=== PATIENT | male | born 1975 | race Caucasian/White ===

== ENCOUNTER 2018-09-14 14:29 | Emergency (ER) | payer SELFPAY ==
[2018-09-14] MEDS ORDERED: NS(*) 0.9% 1000 ML BAG 1,000 ML IV ONE (14:32)
--- NOTE | 2018-09-14 14:39 | ER Report ---
History and Physical Time Seen By MD: 14:37 Hx. of Stated Complaint: patient found unresponsive on the street. swelling to right eye and nose. C-Collar placed via EMS (CHRIST CABRERA MD) HPI/ROS CHIEF COMPLAINT: AMS HISTORY OF PRESENT ILLNESS: Patient is a 43-year-old male who is prior visits for alcohol abuse as well as a history of bilateral ankle fractures. EMS was called along with post responders for an unresponsive male laying underneath a parked car. Patient admits to drinking alcohol today but cannot quantify the amount. Patient is being held under police hold. Patient offers no complaints of pain states that he is on no current medications. REVIEW OF SYSTEMS: Constitutional: No fever, no chills. Eyes: No discharge. ENT: No sore throat. Cardiovascular: No chest pain, no palpitations. Respiratory: No cough, no shortness of breath. Gastrointestinal: No abdominal pain, no vomiting. Genitourinary: No hematuria. Musculoskeletal: No back pain. Skin: No rashes. Neurological: No headache. (CHRIST CABRERA MD) Allergies: Coded Allergies: No Known Drug Allergies (Unverified , 05/04/15) Home Meds Reported Medications Aspirin (ASPIRIN EC) 325 Mg Tablet.dr, 325 MG PO QDAY, TAB take with food 05/08/15 Oxycodone Hcl/Acetaminophen (PERCOCET 5-325 MG TABLET) 1 Each Tablet, 1-2 TAB PO Q6H PRN for PAIN, #20 TAB 05/08/15 Cephalexin (KEFLEX) 500 Mg Capsule, 500 MG PO TID, #15 CAP 05/08/15 Past Medical/Surgical History History of alcohol abuse in the past history of bilateral ankle fractures (CHRIST CABRERA MD) Hx Smoking: Yes (1 PPD FOR 25 YEARS) Smoking Status: Current: Every Day Smoker Exposure to Second Hand Smoke?: Yes Hx Substance Use Disorder: Yes (MARIJUANA) Hx Alcohol Use: Yes (CHRIST CABRERA MD) Constitutional Vital Sign - Last 24 Hours 09/14/18 14:31 O2 Delivery Room Air (LAURORA,NAVI V DO) Physical Exam General Appearance: The patient is alert, has no immediate need for airway protection and no signs of toxicity. She was small alcohol on breath and slurred speech. Eyes: Pupils equal and round no pallor or injection. ENT, Mouth: Mucous membranes are moist. Alcohol on breath Respiratory: There are no retractions, lungs are clear to auscultation. Cardiovascular: Regular rate and rhythm. Gastrointestinal: Abdomen is soft and non tender, no masses, bowel sounds normal. Neurological: Patient is awake with slurred speech GCS is 14 Skin: Warm and dry, no rashes. Musculoskeletal: Neck is supple non tender. Extremities are nontender, nonswollen and have full range of motion. (CHRIST CABRERA MD) Medical Decision Making Data Points Result Diagram: 09/14/18 1448 09/14/18 1448 Laboratory Hematology Test 09/14/18 14:48 09/14/18 14:51 09/14/18 15:25 Red Blood Count 4.61 M/uL (4.00-5.60) Mean Corpuscular Volume 106.0 fL (80.0-96.0) Mean Corpuscular Hemoglobin 36.8 pg (26.0-33.0) Mean Corpuscular Hemoglobin Concent 34.7 g/dL (32.0-36.0) Red Cell Distribution Width 13.1 % (11.5-14.5) Mean Platelet Volume 8.0 fL (7.2-11.1) Neutrophils (%) (Auto) 51.6 % (39.4-72.5) Lymphocytes (%) (Auto) 37.1 % (17.6-49.6) Monocytes (%) (Auto) 9.0 % (4.1-12.4) Eosinophils (%) (Auto) 1.0 % (0.4-6.7) Basophils (%) (Auto) 1.3 % (0.3-1.4) Nucleated RBC Relative Count (auto) 0.0 /100WBC Neutrophils # (Auto) 3.7 K/uL (2.0-7.4) Lymphocytes # (Auto) 2.6 K/uL (1.3-3.6) Monocytes # (Auto) 0.6 K/uL (0.3-1.0) Eosinophils # (Auto) 0.1 K/uL (0.0-0.5) Basophils # (Auto) 0.1 K/uL (0.0-0.1) Nucleated RBC Absolute Count (auto) 0.00 K/uL Sodium Level 144 mmol/L (137-145) Potassium Level 3.4 mmol/L (3.5-5.0) Chloride Level 107 mmol/L (98-107) Carbon Dioxide Level 21 mmol/L (22-30) Blood Urea Nitrogen 5 mg/dl (9-21) Creatinine 0.70 mg/dl (0.66-1.25) Glomerular Filtration Rate Calc > 60.0 Random Glucose 83 mg/dl (75-110) Calcium Level 8.9 mg/dl (8.4-10.2) Total Bilirubin 0.3 mg/dl (0.2-1.3) Aspartate Amino Transf (AST/SGOT) 87 U/L (0-35) Alanine Aminotransferase (ALT/SGPT) 56 U/L (0-56) Alkaline Phosphatase 97 U/L (0-126) Ammonia 10 UMOL/L (9-33) Total Protein 7.7 g/dl (6.3-8.2) Albumin 4.4 g/dl (3.5-5.0) Serum Alcohol 436 mg/dl Whole Blood Glucose 76 mg/DL (75-110) Urine Color Colorless Urine Clarity Clear Urine pH 6.0 pH (4.8-9.5) Urine Specific [place] 1.001 Urine Protein Negative mg/dL (NEGATIVE) Urine Glucose (UA) Negative mg/dL (NEGATIVE) Urine Ketones Negative mg/dL (NEGATIVE) Urine Blood Small (NEGATIVE) Urine Nitrite Negative (NEGATIVE) Urine Bilirubin Negative (NEGATIVE) Urine Urobilinogen Negative mg/dL (0.2-1.9) Urine Leukocyte Esterase Negative (NEGATIVE) Urine RBC <1 /HPF (0-2/HPF) Urine WBC None /HPF (0-5/HPF) Urine Squamous Epithelial Cells None /LPF (</=FEW) Urine Bacteria Negative /HPF (NONE-FEW) Urine Mucus None /HPF (NONE-FEW) Urine Opiates Screen Negative Urine Barbiturates Screen Negative Ur Tricyclic Antidepressants Screen Negative Urine Phencyclidine Screen Negative Urine Amphetamines Screen Negative Urine Benzodiazepines Screen Negative Urine Cocaine Screen Negative Urine Cannabinoids Screen Negative Chemistry Test 09/14/18 14:48 09/14/18 14:51 09/14/18 15:25 White Blood Count 7.1 k/uL (4.5-11.0) Red Blood Count 4.61 M/uL (4.00-5.60) Hemoglobin 17.0 g/dL (14.0-18.0) Hematocrit 48.9 % (42.0-52.0) Mean Corpuscular Volume 106.0 fL (80.0-96.0) Mean Corpuscular Hemoglobin 36.8 pg (26.0-33.0) Mean Corpuscular Hemoglobin Concent 34.7 g/dL (32.0-36.0) Red Cell Distribution Width 13.1 % (11.5-14.5) Platelet Count 209 K/uL (150-450) Mean Platelet Volume 8.0 fL (7.2-11.1) Neutrophils (%) (Auto) 51.6 % (39.4-72.5) Lymphocytes (%) (Auto) 37.1 % (17.6-49.6) Monocytes (%) (Auto) 9.0 % (4.1-12.4) Eosinophils (%) (Auto) 1.0 % (0.4-6.7) Basophils (%) (Auto) 1.3 % (0.3-1.4) Nucleated RBC Relative Count (auto) 0.0 /100WBC Neutrophils # (Auto) 3.7 K/uL (2.0-7.4) Lymphocytes # (Auto) 2.6 K/uL (1.3-3.6) Monocytes # (Auto) 0.6 K/uL (0.3-1.0) Eosinophils # (Auto) 0.1 K/uL (0.0-0.5) Basophils # (Auto) 0.1 K/uL (0.0-0.1) Nucleated RBC Absolute Count (auto) 0.00 K/uL Glomerular Filtration Rate Calc > 60.0 Calcium Level 8.9 mg/dl (8.4-10.2) Total Bilirubin 0.3 mg/dl (0.2-1.3) Aspartate Amino Transf (AST/SGOT) 87 U/L (0-35) Alanine Aminotransferase (ALT/SGPT) 56 U/L (0-56) Alkaline Phosphatase 97 U/L (0-126) Ammonia 10 UMOL/L (9-33) Total Protein 7.7 g/dl (6.3-8.2) Albumin 4.4 g/dl (3.5-5.0) Serum Alcohol 436 mg/dl Whole Blood Glucose 76 mg/DL (75-110) Urine Color Colorless Urine Clarity Clear Urine pH 6.0 pH (4.8-9.5) Urine Specific [place] 1.001 Urine Protein Negative mg/dL (NEGATIVE) Urine Glucose (UA) Negative mg/dL (NEGATIVE) Urine Ketones Negative mg/dL (NEGATIVE) Urine Blood Small (NEGATIVE) Urine Nitrite Negative (NEGATIVE) Urine Bilirubin Negative (NEGATIVE) Urine Urobilinogen Negative mg/dL (0.2-1.9) Urine Leukocyte Esterase Negative (NEGATIVE) Urine RBC <1 /HPF (0-2/HPF) Urine WBC None /HPF (0-5/HPF) Urine Squamous Epithelial Cells None /LPF (</=FEW) Urine Bacteria Negative /HPF (NONE-FEW) Urine Mucus None /HPF (NONE-FEW) Urine Opiates Screen Negative Urine Barbiturates Screen Negative Ur Tricyclic Antidepressants Screen Negative Urine Phencyclidine Screen Negative Urine Amphetamines Screen Negative Urine Benzodiazepines Screen Negative Urine Cocaine Screen Negative Urine Cannabinoids Screen Negative Toxicology Test 09/14/18 14:48 09/14/18 15:25 Serum Alcohol 436 mg/dl Urine Opiates Screen Negative Urine Barbiturates Screen Negative Ur Tricyclic Antidepressants Screen Negative Urine Phencyclidine Screen Negative Urine Amphetamines Screen Negative Urine Benzodiazepines Screen Negative Urine Cocaine Screen Negative Urine Cannabinoids Screen Negative Urinalysis Test 09/14/18 15:25 Urine Color Colorless Urine Clarity Clear Urine pH 6.0 pH (4.8-9.5) Urine Specific [place] 1.001 Urine Protein Negative mg/dL (NEGATIVE) Urine Glucose (UA) Negative mg/dL (NEGATIVE) Urine Ketones Negative mg/dL (NEGATIVE) Urine Blood Small (NEGATIVE) Urine Nitrite Negative (NEGATIVE) Urine Bilirubin Negative (NEGATIVE) Urine Urobilinogen Negative mg/dL (0.2-1.9) Urine Leukocyte Esterase Negative (NEGATIVE) Urine RBC <1 /HPF (0-2/HPF) Urine WBC None /HPF (0-5/HPF) Urine Squamous Epithelial Cells None /LPF (</=FEW) Urine Bacteria Negative /HPF (NONE-FEW) Urine Mucus None /HPF (NONE-FEW) (NAVI HERNANDEZ DO) ED Course/Re-evaluation ED Course N at this time will be CT of the head patient bones and C-spine. We'll check EKG CBC CMP alcohol urine drug screen. Decision to Disposition Date: Sep 14, 2018 Decision to Disposition Time: 17:00 (CHRIST CABRERA MD) ED Course 09/14/2018 3:54:33 pm PT signed out to me pending Imaging. Pts images show a broken nose but otherwise no acute injury. Pt does have signs of dry blood in nose so I suspect the broken nose is a new finding. Pt is alert. Will d/c to police custody. Decision to Disposition Date: Sep 14, 2018 Decision to Disposition Time: 15:55 (NAVI HERNANDEZ DO) Depart Departure Latest Vital Signs Vital Signs Date Time Temp Pulse Resp B/P (MAP) Pulse Ox O2 Delivery O2 Flow Rate FiO2 09/14/18 14:31 Room Air (NAVI HERNANDEZ DO) Impression: Primary Impression: Broken nose Additional Impression: Alcohol intoxication Condition: Condition Unchanged Disposition: [facility] TO CUSTODIAL/CORRECTIONAL F Referrals: BETTY MARTEL MD (PCP) ALE RAO JR, MD ENT specialist to see for your broken nose if you feel it is needed. Patient Instructions: Alcohol Intoxication (ED), Nasal Fracture (DC) Additional Instructions: You broke your nose. If you feel you are having trouble breathing thru your nose or if you feel it is not straight, you can follow up with ENT (nose specialist). Return as needed. Problem Qualifiers Primary Impression: Broken nose Encounter type: initial encounter Fracture type: closed Qualified Codes: S02.2XXA - Fracture of nasal bones, initial encounter for closed fracture Additional Impression: Alcohol intoxication Complication of substance-induced condition: uncomplicated Qualified Codes: F10.920 - Alcohol use, unspecified with intoxication, uncomplicated CHRIST CABRERA MD Sep 14, 2018 14:39 NAVI HERNANDEZ DO Sep 14, 2018 15:57
--- NOTE | 2018-09-14 14:43 | EKG ---
FACILITY: [facility] PATIENT NAME: PAKO CASTRO : [id number] MR: [id number] V: [id number] EXAM DATE: ORDERING PHYSICIAN: CHRIST CABRERA TECHNOLOGIST: Test Reason : Blood Pressure : / mmHG Vent. Rate : 096 BPM Atrial Rate : 096 BPM P-R Int : 158 ms QRS Dur : 142 ms QT Int : 398 ms P-R-T Axes : 061 -72 052 degrees QTc Int : 502 ms Normal sinus rhythm Left axis deviation Right bundle branch block Abnormal ECG When compared with ECG of 30-APR-2015 17:06, QRS axis shifted left Confirmed by VIVEK NUNEZ ([id number]) on 09/14/2018 5:34:46 PM Referred By: Confirmed By:VIVEK NUNEZ
[2018-09-14 14:59] LABS: PLATELET COUNT, AUTOMATED 209 K/uL (150-450)
[2018-09-14 15:30] VITALS: BP 117/89
--- NOTE | 2018-09-14 15:50 | RADIOLOGY IMAGING REPORT ---
FACILITY: [facility] - [place] PATIENT NAME: Jeronimo Meza : 1975 MR: [id number] V: [id number] EXAM DATE: ORDERING PHYSICIAN: CHRIST CABRERA TECHNOLOGIST: Location: [facility] - [place], [place] Patient: Jeronimo Meza : 1975 Visit/Account:[id number] Date of Sevice: 09/14/2018 EXAMINATION: CT HEAD, MAXILLOFACIAL, AND CERVICAL SPINE WITHOUT CONTRAST COMPARISON: None available HISTORY: Trauma. Fall. Loss of consciousness. PROCEDURE: Noncontrast multiplanar head CT, maxillofacial CT, and cervical spine CT. One of the following dose optimization techniques was utilized in the performance of this exam: Autom ated exposure control; adjustment of the mA and/or kV according to the patient's size; or use of an i terative reconstruction technique. Specific details can be referenced in the facility's radiology C T exam operational policy. FINDINGS: CT head without contrast: Brain volume: Age-appropriate. Hemorrhage/extra-axial fluid: None. Mass effect/midline shift/edema: None. Ischemia: Minimal nonspecific white matter change. No cuenca-white differentiation loss. Ventricles and basal cisterns: Within normal limits. Posterior fossa: Negative. Vessels: Negative. Calvarium, skull base, and scalp: Negative. CT maxillofacial without contrast: Mandible, temporomandibular joints, and teeth: Temporomandibular joint alignment is within normal [place]oya its. No mandible fracture is identified. Both mandibular first incisors are absent and there is irreg ularity of the maxillary alveolar ridge. This is favored to be related to chronic dental disease alth ough correlation with any clinical evidence of acute dental trauma is recommended. Numerous dental ca derrick are also noted. Orbits and orbital contents: No orbit fracture. Globes and orbital contents are symmetric. Paranasal sinuses and mastoid air cells: Bilateral maxillary sinus minimal mucosal inflammation. Othe rwise negative. Nasal bones, anterior nasal spine, and nasal septum: Bilateral nasal bone minimally displaced age-ind eterminate fractures. Anterior nasal spine age-indeterminate nondisplaced fracture. Leftward deviatio n of the nasal septum with a left-sided nasal septal spur. Nasal passages otherwise clear. Zygomatic arches and pterygoid plates: Negative. Facial soft tissues: Right supraorbital soft tissue swelling and question will small hematoma. Minima l asymmetric swelling along the right nasal bone. CT cervical spine without contrast: Alignment: Mild reversal of mid cervical curvature is favored to be degenerative, muscle spasm, or po sitioning. No acute malalignment. Cranio-cervical junction: Within normal limits. Vertebral bodies: No fracture. Posterior elements: Facet alignment is within normal limits with multilevel mild facet arthropathy. N o fracture. Disc spaces: Mild degenerative disease most notably at C5-C6 and C6-C7. Small posterior disc and oste ophyte complexes at these levels is associated with minimal effacement of the spinal canal. Additiona lly, multilevel mild uncovertebral joint hypertrophy and facet arthropathy results in multilevel mild foraminal narrowing. Hardware: None. Soft tissues: Negative. Visualized upper chest: No acute findings. IMPRESSION: 1. No intracranial hemorrhage or mass effect. 2. No CT findings of acute ischemia. 3. Bilateral nasal bone and anterior nasal spine age-indeterminate fractures. 4. Right supraorbital soft tissue swelling. 5. Chronic dental disease as described above. 6. No cervical spine fracture or malalignment. 7. Cervical degenerative change as described above. Report Dictated By: Zelalem Kuhn MD at 09/14/2018 3:29 PM Report E-Signed By: Zelalem Kuhn MD at 09/14/2018 3:46 PM WSN:[id number]
--- NOTE | 2018-09-14 15:50 | RADIOLOGY IMAGING REPORT ---
FACILITY: [facility] - [place] PATIENT NAME: Jeronimo Meza : 1975 MR: [id number] V: [id number] EXAM DATE: ORDERING PHYSICIAN: CHRIST CABRERA TECHNOLOGIST: Location: [facility] [place]: Jeronimo Meza : 1975 Visit/Account:[id number] Date of Sevice: 09/14/2018 EXAMINATION: CT HEAD, MAXILLOFACIAL, AND CERVICAL SPINE WITHOUT CONTRAST COMPARISON: None available HISTORY: Trauma. Fall. Loss of consciousness. PROCEDURE: Noncontrast multiplanar head CT, maxillofacial CT, and cervical spine CT. One of the following dose optimization techniques was utilized in the performance of this exam: Autom ated exposure control; adjustment of the mA and/or kV according to the patient's size; or use of an i terative reconstruction technique. Specific details can be referenced in the facility's radiology C T exam operational policy. FINDINGS: CT head without contrast: Brain volume: Age-appropriate. Hemorrhage/extra-axial fluid: None. Mass effect/midline shift/edema: None. Ischemia: Minimal nonspecific white matter change. No cuenca-white differentiation loss. Ventricles and basal cisterns: Within normal limits. Posterior fossa: Negative. Vessels: Negative. Calvarium, skull base, and scalp: Negative. CT maxillofacial without contrast: Mandible, temporomandibular joints, and teeth: Temporomandibular joint alignment is within normal [place] its. No mandible fracture is identified. Both mandibular first incisors are absent and there is irreg ularity of the maxillary alveolar ridge. This is favored to be related to chronic dental disease alth ough correlation with any clinical evidence of acute dental trauma is recommended. Numerous dental ca derrick are also noted. Orbits and orbital contents: No orbit fracture. Globes and orbital contents are symmetric. Paranasal sinuses and mastoid air cells: Bilateral maxillary sinus minimal mucosal inflammation. Othe rwise negative. Nasal bones, anterior nasal spine, and nasal septum: Bilateral nasal bone minimally displaced age-ind eterminate fractures. Anterior nasal spine age-indeterminate nondisplaced fracture. Leftward deviatio n of the nasal septum with a left-sided nasal septal spur. Nasal passages otherwise clear. Zygomatic arches and pterygoid plates: Negative. Facial soft tissues: Right supraorbital soft tissue swelling and question will small hematoma. Minima l asymmetric swelling along the right nasal bone. CT cervical spine without contrast: Alignment: Mild reversal of mid cervical curvature is favored to be degenerative, muscle spasm, or po sitioning. No acute malalignment. Cranio-cervical junction: Within normal limits. Vertebral bodies: No fracture. Posterior elements: Facet alignment is within normal limits with multilevel mild facet arthropathy. N o fracture. Disc spaces: Mild degenerative disease most notably at C5-C6 and C6-C7. Small posterior disc and oste ophyte complexes at these levels is associated with minimal effacement of the spinal canal. Additiona lly, multilevel mild uncovertebral joint hypertrophy and facet arthropathy results in multilevel mild foraminal narrowing. Hardware: None. Soft tissues: Negative. Visualized upper chest: No acute findings. IMPRESSION: 1. No intracranial hemorrhage or mass effect. 2. No CT findings of acute ischemia. 3. Bilateral nasal bone and anterior nasal spine age-indeterminate fractures. 4. Right supraorbital soft tissue swelling. 5. Chronic dental disease as described above. 6. No cervical spine fracture or malalignment. 7. Cervical degenerative change as described above. Report Dictated By: Zelalem Kuhn MD at 09/14/2018 3:29 PM Report E-Signed By: Zelalem Kuhn MD at 09/14/2018 3:46 PM WSN:[id number]
--- NOTE | 2018-09-14 15:51 | RADIOLOGY IMAGING REPORT ---
FACILITY: [facility] - [place] PATIENT NAME: Jeronimo Meza : 1975 MR: [id number] V: [id number] EXAM DATE: ORDERING PHYSICIAN: CHRIST CABRERA TECHNOLOGIST: Location: [facility] - [place] Patient: Jeronimo Meza : 1975 Visit/Account:[id number] Date of Sevice: 09/14/2018 EXAMINATION: CT HEAD, MAXILLOFACIAL, AND CERVICAL SPINE WITHOUT CONTRAST COMPARISON: None available HISTORY: Trauma. Fall. Loss of consciousness. PROCEDURE: Noncontrast multiplanar head CT, maxillofacial CT, and cervical spine CT. One of the following dose optimization techniques was utilized in the performance of this exam: Autom ated exposure control; adjustment of the mA and/or kV according to the patient's size; or use of an i terative reconstruction technique. Specific details can be referenced in the facility's radiology C T exam operational policy. FINDINGS: CT head without contrast: Brain volume: Age-appropriate. Hemorrhage/extra-axial fluid: None. Mass effect/midline shift/edema: None. Ischemia: Minimal nonspecific white matter change. No cuenca-white differentiation loss. Ventricles and basal cisterns: Within normal limits. Posterior fossa: Negative. Vessels: Negative. Calvarium, skull base, and scalp: Negative. CT maxillofacial without contrast: Mandible, temporomandibular joints, and teeth: Temporomandibular joint alignment is within normal [place] its. No mandible fracture is identified. Both mandibular first incisors are absent and there is irreg ularity of the maxillary alveolar ridge. This is favored to be related to chronic dental disease alth ough correlation with any clinical evidence of acute dental trauma is recommended. Numerous dental ca derrick are also noted. Orbits and orbital contents: No orbit fracture. Globes and orbital contents are symmetric. Paranasal sinuses and mastoid air cells: Bilateral maxillary sinus minimal mucosal inflammation. Othe rwise negative. Nasal bones, anterior nasal spine, and nasal septum: Bilateral nasal bone minimally displaced age-ind eterminate fractures. Anterior nasal spine age-indeterminate nondisplaced fracture. Leftward deviatio n of the nasal septum with a left-sided nasal septal spur. Nasal passages otherwise clear. Zygomatic arches and pterygoid plates: Negative. Facial soft tissues: Right supraorbital soft tissue swelling and question will small hematoma. Minima l asymmetric swelling along the right nasal bone. CT cervical spine without contrast: Alignment: Mild reversal of mid cervical curvature is favored to be degenerative, muscle spasm, or po sitioning. No acute malalignment. Cranio-cervical junction: Within normal limits. Vertebral bodies: No fracture. Posterior elements: Facet alignment is within normal limits with multilevel mild facet arthropathy. N o fracture. Disc spaces: Mild degenerative disease most notably at C5-C6 and C6-C7. Small posterior disc and oste ophyte complexes at these levels is associated with minimal effacement of the spinal canal. Additiona lly, multilevel mild uncovertebral joint hypertrophy and facet arthropathy results in multilevel mild foraminal narrowing. Hardware: None. Soft tissues: Negative. Visualized upper chest: No acute findings. IMPRESSION: 1. No intracranial hemorrhage or mass effect. 2. No CT findings of acute ischemia. 3. Bilateral nasal bone and anterior nasal spine age-indeterminate fractures. 4. Right supraorbital soft tissue swelling. 5. Chronic dental disease as described above. 6. No cervical spine fracture or malalignment. 7. Cervical degenerative change as described above. Report Dictated By: Zelalem Kuhn MD at 09/14/2018 3:29 PM Report E-Signed By: Zelalem Kuhn MD at 09/14/2018 3:46 PM WSN:[id number]
== END 2018-09-14 16:07 ==
LOC: ER 14:35
DX: S02.2XXA Fracture of nasal bones, initial encounter for closed fracture (principal); F10.920 Alcohol use, unspecified with intoxication, uncomplicated; R47.81 Slurred speech; I45.10 Unspecified right bundle-branch block; R40.20 Unspecified coma
CPT/HCPCS: 36416; 70450; 70486; 72125; 80305; 80320; 81001; 82040; 82140; 82247; 82310; 82374; 82435; 82565; 82947; 82948; 84075; 84132; 84155; 84295; 84450; 84460; 84520; 85025; 93005; 99284

== ENCOUNTER → 2018-09-14 | Outpatient (CLI) | payer SELFPAY ==
[~2018-09-14] MED LIST: ASPI-764 PO; CEPH-13 PO; CEPH500T7 PO; LOR5/325 PO; OXYC-865 PO
== END ==
LOC: AMB 14:22
PROVIDERS: ATTEND Nurse Practitioner
DX: R40.20 Unspecified coma (principal)
CPT/HCPCS: A0425; A0429